=== PATIENT | female | born 1965 | race Caucasian/White ===

== ENCOUNTER 2017-06-21 07:37 | Day surgery (SDC) | payer BC ==
[2017-06-21] MEDS ORDERED: IRON SUCROSE INJECTION 100 MG in SODIUM CHLORIDE 100 ML IVPB ONE ×3 (10:00→18:00)
--- NOTE | 2017-06-21 16:10 | HP ---
Admitting History and Physical - Admission Chief Complaint: Fe++ deficient for Venofer History Source: Patient Limitations to Obtaining History: No Limitations - Past Medical History Reproductive: Yes: Other (Menses ongoing for last 2 weeks ; previousl no menses x 3 months) ...: No - Smoking History Smoking history: Never smoked Home Medications - Allergies Allergies/Adverse Reactions: Allergies Allergy/AdvReac Type Severity Reaction Status Date / Time No Known Drug Allergies Allergy Unknown Verified 06/20/17 16:48 DUST MITE Allergy Unknown Uncoded 06/20/17 16:46 POLLEN Allergy Unknown Uncoded 06/20/17 16:48 Physical Examination Vital Signs: Vital Signs Temperature 98.9 F 06/21/17 15:41 Pulse Rate 77 06/21/17 15:41 Respiratory Rate 18 06/21/17 15:41 Blood Pressure 103/69 06/21/17 15:41 O2 Sat by Pulse Oximetry (%) Constitutional: Yes: Well Nourished, No Distress Eyes: Yes: PERRL. No: Ptosis, Sclera Icterus HENT: No: Epistaxis, Hoarseness, Thrush, Tonsillar Exudate Neck: Yes: Supple, Trachea Midline Cardiovascular: Yes: Regular Rate and Rhythm Respiratory: Yes: Regular Gastrointestinal: Yes: Normal Bowel Sounds. No: Hepatomegaly, Splenomegaly Breast(s): Yes: WNL Musculoskeletal: No: Back Pain Extremities: No: Calf Tenderness Edema: No Integumentary: Yes: WNL Wound/Incision: Yes: Excoriated ...Motor Strength: WNL Psychiatric: Yes: WNL Problem List - Problems (1) Iron deficiency anemia due to chronic blood loss Assessment/Plan: Heavy menses. IV Venofer for replacement Code(s): D50.0 - IRON DEFICIENCY ANEMIA SECONDARY TO BLOOD LOSS (CHRONIC)
[2017-06-21 18:46] VITALS: BP 116/63; PULSE 64; TEMP 97.9
== END 2017-06-21 18:51 | disposition home or self-care (01) ==
LOC: JONCNONCHE 07:37 → J7W 15:27 → JONCNONCHE 18:51
PROVIDERS: ATTEND Internal Medicine Hematology & Oncology
PROC: 3E033GC Introduction of Other Therapeutic Substance into Peripheral Vein, Percutaneous Approach (ICD-10-PCS; principal; 2017-06-21)
DX: D50.0 Iron deficiency anemia secondary to blood loss (chronic) (principal)
CPT/HCPCS: 96365; J1756